=== PATIENT | female | born 1990 | race Two or more races ===

== ENCOUNTER 2020-05-08 07:45 | Inpatient (IN) | payer OTHER ==
[~2020-05-08] VITALS: Ht 160 cm; Wt 3.2 kg
[2020-05-15] MEDS ORDERED: PRENATAL CAPLE1 EAC1 PO (06:58)
[2020-05-18] MEDS ORDERED: IBUPROFEN800 MG PO (08:00)
[2020-05-18] MEDS ORDERED: GAS RELIEF125 MG PO (08:00)
== END 2020-05-18 13:53 | disposition home or self-care (01) | DRG 785 ==
LOC: O/R 05-15 06:30 → OB/GYN 05-15 08:00
PROVIDERS: ADMIT Specialist; ATTEND Specialist
PROC: 0UB70ZZ Excision of Bilateral Fallopian Tubes, Open Approach (ICD-10-PCS; 2020-05-15)
PROC: 4A1HXFZ Monitoring of Products of Conception, Cardiac Rhythm, External Approach (ICD-10-PCS; 2020-05-15)
PROC: 10D00Z1 Extraction of Products of Conception, Low, Open Approach (ICD-10-PCS; principal; 2020-05-15 08:00)
DX: O65.5 Obstructed labor due to abnormality of maternal pelvic organs (principal); O34.211 Maternal care for low transverse scar from previous cesarean delivery; Z30.2 Encounter for sterilization; Z37.0 Single live birth; Z3A.39 39 weeks gestation of pregnancy

== ENCOUNTER 2023-02-23 23:50 | Emergency (ER) | payer OTHER ==
[~2023-02-23] VITALS: Ht 160 cm; Wt 70.3 kg
[~2023-02-23 23:50] MED LIST: GAS RELIEF125 MG PO; IBUPROFEN800 MG PO; PRENATAL CAPLE1 EAC1 PO
[2023-02-23] MEDS ORDERED: SYNTHROID50 MCG PO (23:59)
[2023-02-23] MEDS ORDERED: ATORVASTATIN CA10 MG PO (23:59)
== END 2023-02-24 | disposition left against medical advice (07) ==
LOC: ER 23:50
DX: Z53.21 Procedure and treatment not carried out due to patient leaving prior to being seen by health care provider (principal)